=== PATIENT | male | born 1990 | race Caucasian/White ===

== ENCOUNTER 2020-08-09 13:11 | Emergency (ER) | payer BC, MEDICAID, MEDICARE ==
[~2020-08-09] VITALS: Ht 165.1 cm; Wt 81.6 kg
[2020-08-09 13:14] VITALS: BP_SYST 140
[2020-08-09 14:15] VITALS: BP_SYST 140
[2020-08-09] MEDS ORDERED: DIPH-TET-PERTUS Vaccine 0.5 ML VIAL (ADACEL) I.M. ONE (14:30)
== END 2020-08-09 14:15 | disposition home or self-care (01) ==
LOC: SED 13:11
DX: S61.214A Laceration without foreign body of right ring finger without damage to nail, initial encounter (principal); W25.XXXA Contact with sharp glass, initial encounter; Y93.89 Activity, other specified; Y92.89 Other specified places as the place of occurrence of the external cause; Y99.8 Other external cause status
CPT/HCPCS: 99283

== ENCOUNTER 2023-06-20 17:22 | Emergency (ER) | payer BC ==
[~2023-06-20] VITALS: Ht 165.1 cm; Wt 86.2 kg
[2023-06-20 17:23] VITALS: BP_SYST 132; PULSE 122; RESP 22; TEMP 98.3; O2SAT 98
[2023-06-20] MEDS: LORazepam 2 MG/ML VIAL IM ONE (17:59)
[2023-06-20] MEDS: HALOPERIDOL LACTATE 5 MG/ML VIAL IM ONE (17:59)
[2023-06-20] MEDS: DIPHENHYDRAMINE INJ 50 MG/ML VIAL IM ONE (18:00)
[2023-06-20 18:17] LABS: BASOPHILS % (AUTO) 0.5 % (0.0-2.0); EOSINOPHILS % (AUTO) 0.2 % (0.0-4.0); HEMATOCRIT 41.8 % (36-54); HEMOGLOBIN 14.6 g/dL (14.0-18.0); LYMPHOCYTES # (AUTO) 1.8 K/uL (1.0-5.5); LYMPHOCYTES % (AUTO) 23.6 % (20.5-51.5); MEAN CORPUSCULAR HEMOGLOBIN 29 pg (27-31); MEAN CORPUSCULAR HGB CONC 35 % (32-36); MEAN CORPUSCULAR VOLUME 82 fL (79.0-98.0); MONOCYTES # (AUTO) 0.3 K/uL (0.0-1.0); MONOCYTES % (AUTO) 4.6 % (1.7-9.3); NEUTROPHILS # (AUTO) 5.3 K/uL (1.8-7.7); NEUTROPHILS % (AUTO) 71.1 % (40.0-70.0); PLATELET COUNT (AUTO) 246 K/uL (130-430); RED BLOOD CELL COUNT(AUTO) 5.08 MIL/uL (4.2-6.2); RED CELL DISTRIBUTION WIDTH 13.3 % (9.0-15.0); WHITE BLOOD COUNT (AUTO) 7.4 K/uL (4.8-10.8)
[2023-06-20 18:40] LABS: ALANINE AMINOTRANSFERASE 19 U/L (12-78); ALBUMIN 3.5 g/dL (3.4-4.8); ANION GAP 10 (5-15); ASPARTATE AMINOTRANSFERASE 12 U/L (10-37); BILIRUBIN,DIRECT 0.2 mg/dL (0.0-0.3); CALCIUM 7.9 mg/dL (8.4-11.0); CARBON DIOXIDE 23 mmol/L (23-29); CHLORIDE 107 mmol/L (98-107); CREATINE KINASE, TOTAL 105 U/L (39-308); CREATININE 1.33 mg/dL (0.55-1.30); GFR AFRICAN AMERICAN 81 mL/min (>90); GLUCOSE 177 mg/dL (74-106); SALICYLATE 2 mg/dL (3-30); SODIUM SERUM 140 mmol/L (136-145); TOTAL BILIRUBIN 0.6 mg/dL (0.0-1.0); UREA NITROGEN, BLOOD 9 mg/dL (8-21)
[2023-06-20 18:43] LABS: GFR NON AFRICAN-AMERICAN 67 mL/min (>90)
[2023-06-20 18:44] LABS: ACETAMINOPHEN < 1 ug/mL (1-30)
[2023-06-20 18:45] LABS: ALCOHOL, BLOOD 10 mg/dL (<10)
[2023-06-20] MEDS: POTASSIUM CHLORIDE 20 MEQ TABLET.ER PO ONE (21:26)
[2023-06-20 23:32] LABS: BENZODIAZEPINE, URINE POSITIVE (NEG <=150); CANNABINOID, URINE POSITIVE (NEG <=50)
[2023-06-20 23:33] LABS: BARBITURATE, URINE NEGATIVE (NEG <=200); COCAINE, URINE NEGATIVE (NEG <=150); METHAMPHETAMINES SCREEN,URINE NEGATIVE (NEG <=500); OPIATE, URINE NEGATIVE (NEG <=100); PHENCYCLIDINE SCREEN,URINE NEGATIVE (NEG <=25); UR TRICYCLIC ANTIDEPRESSANTS POSITIVE (NEG <=300); URINE AMPHETAMINE NEGATIVE (NEG <=500); URINE METHADONE NEGATIVE (NEG <=200); URINE OXYCODONE SCREEN NEGATIVE (NEG <=100)
[2023-06-21 00:15] VITALS: BP_SYST 127; PULSE 104; RESP 18; TEMP 98.7; O2SAT 98
== END 2023-06-21 00:15 | disposition home or self-care (01) ==
LOC: SED 17:22
DX: T43.591A Poisoning by other antipsychotics and neuroleptics, accidental (unintentional), initial encounter (principal); R45.851 Suicidal ideations; F15.10 Other stimulant abuse, uncomplicated; Z79.899 Other long term (current) drug therapy; Y92.89 Other specified places as the place of occurrence of the external cause
CPT/HCPCS: 99285; 80307; 80076; 80048; 82550; 85025; 36415; 93005; 96372; G0482; J1200; J1630; J2060; G0480; G0481